=== PATIENT | female | born 1970 | race Caucasian/White ===

== ENCOUNTER 2019-05-24 11:06 | Day surgery (SDC) | payer OTHER ==
[2019-05-24] MEDS ORDERED: HYDROmorphONE 1 MG/5 ML IV SYRINGE IV (13:30)
[2019-05-24] MEDS ORDERED: ALBUTEROL 0.083% (NEB) 2.5 MG/3 ML AMP HHN (13:30)
[2019-05-24] MEDS ORDERED: LEVALBUTEROL (NEB) 0.63 MG/3 ML AMP HHN (13:30)
[2019-05-24] MEDS ORDERED: FENTAnyl 50 MCG/ML VIAL IV ×2 (13:30)
[2019-05-24] MEDS ORDERED: FENTAnyl 50 MCG/ML VIAL (13:38)
[2019-05-24] MEDS ORDERED: PROPOFOL 20 ML (13:52)
[2019-05-24] MEDS ORDERED: CEFAZOLIN 1 GM INJ (13:52)
[2019-05-24] MEDS ORDERED: GLYCOPYRROLATE 0.4 MG INJ (13:52)
[2019-05-24] MEDS ORDERED: LIDOCAINE 2% (SDV) 5 ML INJ (13:52)
[2019-05-24] MEDS: BUPIVACAINE 0.5% (SDV) 30 ML INJ (14:09)
[2019-05-24] MEDS ORDERED: BUPIVACAINE 0.5% (SDV) 30 ML INJ (14:15)
[2019-05-24] MEDS ORDERED: ONDANSETRON 4 MG INJ ×2 (14:21→14:34)
[2019-05-24] MEDS ORDERED: OXYCODONE/ACETAMINOPHEN (5/325) TAB PO (15:00)
[2019-05-24] MEDS: OXYCODONE/ACETAMINOPHEN (5/325) TAB PO (15:02)
[2019-05-24] MEDS: HYDROmorphONE 1 MG/5 ML IV SYRINGE IV (15:03)
[2019-05-24] MEDS: ONDANSETRON 4 MG INJ IV (15:03)
[2019-05-24] MEDS: MEPERIDINE 25 MG INJ IV (15:03)
== END 2019-05-24 16:15 | disposition home or self-care (01) ==
LOC: SDS 11:06
DX: M20.42 Other hammer toe(s) (acquired), left foot (principal); I10 Essential (primary) hypertension; J45.909 Unspecified asthma, uncomplicated; Z95.0 Presence of cardiac pacemaker
CPT/HCPCS: 28285; 88304; 88311